=== PATIENT | male | born 1975 | race African-American/Black ===

== ENCOUNTER 2017-03-17 19:52 | Emergency (ER) | payer MEDICAID ==
[~2017-03-17] VITALS: Ht 180.3 cm; Wt 84.5 kg
[~2017-03-17 19:52] MED LIST: HYDR-3533 PO; LISI-360 PO
[2017-03-17 19:53] VITALS: BP 145/88; PULSE 62; RESP 16; TEMP 98.4; O2SAT 97
== END 2017-03-17 21:22 | disposition left against medical advice (07) ==
LOC: NED 19:52
DX: R68.89 Other general symptoms and signs (principal)
CPT/HCPCS: 99281